=== PATIENT | male | born 1985 | race African-American/Black ===

== ENCOUNTER 2021-09-19 00:34 | Emergency (ER) | payer BC ==
[~2021-09-19] VITALS: Ht 182.9 cm; Wt 84.6 kg
[2021-09-19 00:45] VITALS: BP 149/86
--- NOTE | 2021-09-19 01:16 | NUR ---
ER AT BEDSIDE
[2021-09-19] MEDS ORDERED: IBUP-2213 PO (01:27)
[2021-09-19] MEDS ORDERED: MAGN296S48 PO (01:27)
--- NOTE | 2021-09-19 01:39 | NUR ---
PATIENT CLEARED FOR DISHCARGE AT THIS TIME. ADVISED TO FOLLO WUP WITH PCP AND RETURN IF CONDITION WORSENS. NO OTHER COMPLAINTS OR CONECRNS AT THIS TIME FOLLOWING DISCHARGE TEACHING.
[2021-09-19 01:41] VITALS: BP 149/86
== END 2021-09-19 01:39 | disposition home or self-care (01) ==
LOC: MED 00:34
DX: K59.00 Constipation, unspecified (principal); R10.32 Left lower quadrant pain; F17.200 Nicotine dependence, unspecified, uncomplicated; Z98.890 Other specified postprocedural states
CPT/HCPCS: 99282